=== PATIENT | female | born 1950 | race African-American/Black ===

== ENCOUNTER 2019-07-08 18:12 | Emergency (ER) | payer OTHER ==
[2019-07-08 18:18] VITALS: BP 160/88; PULSE 100; TEMP 98.1; BMI 29.9
--- NOTE | 2019-07-08 19:32 | PDOC ---
History of Present Illness - General Chief Complaint: Cold Symptoms Stated Complaint: CAUPHING Time Seen by Provider: 07/08/19 18:38 History Source: Patient, Family Exam Limitations: No Limitations - History of Present Illness Initial Comments: 07/08/19 19:32 69-year-old female denies past medical history or use of medication accompanied by her niece complaining of 2 weeks of dry cough, mild sore throat and body aches. Concerned because 2 days ago noticed 1 episode of hemoptysis. Describes as pinkish sputum on tissue. Denies dizziness, headache, chest pain, shortness of breath, weakness, fever, chills, nausea, vomiting, diarrhea, abdominal pain, back pain, urinary symptoms, recent sick contacts or any other complaints. 1 month ago arrived from [place] via car and plans to reside in [place]. Has been drinking and eating normally and uses lozenges with some relief of symptoms. ROS: GENERAL/CONSTITUTIONAL: Body aches, no fever, chills, weakness, dizziness HEAD, EYES, EARS, NOSE AND THROAT: Mild sore throat, no changes in vision, No ear pain or discharge CARDIOVASCULAR: No chest pain RESPIRATORY: Positive cough GASTROINTESTINAL: No pain, nausea, vomiting, diarrhea or constipation GENITOURINARY: No dysuria MUSCULOSKELETAL: No neck or back pain SKIN: No rash NEUROLOGIC: No headache, vertigo, loss of consciousness, or loss of sensation PE: GENERAL: well-appearing, NAD HEAD: NCAT EYES: Pupils equal, round and reactive to light, sclera anicteric, conjunctiva clear ENT: pharynx: no erythema, no exudate, uvula midline NECK: supple, no lymphadenopathy CHEST: nontender RESP: clear, no w/r/r CARDIO: rrr, no m/g/r ABD: +BS, soft, nontender, non distended BACK: no midline spinal ttp, no CVAT EXTREMITIES: Normal range of motion, no edema NEUROLOGICAL: Normal speech, normal gait SKIN: Warm, Dry Is this a multiple visit Asthma Patient?: No Past History - Past Medical History Allergies/Adverse Reactions: Allergies Allergy/AdvReac Type Severity Reaction Status Date / Time No Known Allergies Allergy Verified 07/08/19 18:18 COPD: No - Psycho Social/Smoking Cessation Hx Smoking History: Never smoked *Physical Exam - Vital Signs Last Vital Signs Temp Pulse Resp BP Pulse Ox 98.1 F 100 H 18 160/88 98 07/08/19 18:15 07/08/19 18:15 07/08/19 18:15 07/08/19 18:15 07/08/19 18:15 Medical Decision Making - Medical Decision Making 07/08/19 19:38 69-year-old female denies past medical history complaining of cough x2 weeks with one episode of hemoptysis 2 days ago. Denies dizziness, shortness of breath, chest pain, abdominal pain, nausea, vomiting, diarrhea. Does not have a PMD at this time. Flu swab pending Chest x-ray pending Reassess 07/08/19 20:19 Chest x-ray reviewed by me no acute infiltrate noted Flu swab negative Discussed results with patient Patient understands that she will be contacted if chest x-ray read changes by the radiologist Supportive care Follow-up with primary care within 1 week Return precautions Discharge - Discharge Information Problems reviewed: Yes Clinical Impression/Diagnosis: Cough Condition: Stable - Admission No - Follow up/Referral Referrals: Ravi Alicia MD [Staff Physician] - CallBack Reminder: Chest x-ray - Patient Discharge Instructions Additional Instructions: Drink plenty of fluids, rest Call primary care physician and schedule an appointment within 1 week Return to ED if chest pain, shortness of breath, fever, chills, abdominal pain or any other complaints. - Post Discharge Activity
== END 2019-07-08 20:32 | disposition home or self-care (01) ==
LOC: JERFT 18:12
DX: R05 Cough (principal)
CPT/HCPCS: 71046-TC-FY; 87804; 99281-25